=== PATIENT | female | born 1985 | race Hispanic/Latino ===

== ENCOUNTER 2023-09-28 09:44 | Outpatient (CLI) | payer BC | END 2023-09-28 09:45 | disposition home or self-care (01) | LOC: BICMAMMO 09:44 | PROVIDERS: ATTEND Family Medicine | DX: N63.21 Unspecified lump in the left breast, upper outer quadrant (principal) | CPT/HCPCS: 77066; G0279 ==

== ENCOUNTER 2024-09-03 15:46 | Outpatient (CLI) | payer BC | END 2024-09-03 15:47 | disposition home or self-care (01) | LOC: SCSRAD 15:46 | PROVIDERS: ATTEND Family Medicine | DX: M54.50 Low back pain, unspecified (principal); M54.6 Pain in thoracic spine | CPT/HCPCS: 72052; 72072; 72100 ==

== ENCOUNTER 2025-08-15 14:53 | Outpatient (CLI) | payer BC | END 2025-08-15 14:54 | disposition home or self-care (01) | LOC: SCSRAD 14:53 | PROVIDERS: ATTEND Family Medicine | DX: Z11.1 Encounter for screening for respiratory tuberculosis (principal) | CPT/HCPCS: 71046 ==